=== PATIENT | female | born 1995 | race Caucasian/White ===

== ENCOUNTER 2019-11-09 03:22 | Emergency (ER) | payer BC ==
[2019-11-09 03:30] VITALS: RESP 18
[2019-11-09] MEDS ORDERED: ONDANSETRON 4 MG/2 ML VIAL IVP STA ×2 (03:43→04:49)
[2019-11-09] MEDS ORDERED: SODIUM CHLORIDE 0.9% 1,000 ML IV ONE (03:43)
--- NOTE | 2019-11-09 04:00 | ED ---
Syncope [facility] - General Chief Complaint: Syncope Stated Complaint: Syncope, vomiting Time Seen by Provider: 11/09/19 03:33 Source: family Mode of arrival: ambulatory Limitations: no limitations - History of Present Illness MD Complaint: loss of consciousness -: minutes(s) Prodromal Symptoms: lightheaded, nausea/vomiting -: second(s) Injuries Sustained Associated with Event: None Current Symptoms: lightheaded, nausea History: previous syncopal episode Treatments Prior to Arrival: none - Related Data Previous Rx's Medication Instructions Recorded Ondansetron Odt [Zofran ODT] 4 mg PO Q8HR PRN #10 tab 11/09/19 Allergies Allergy/AdvReac Type Severity Reaction Status Date / Time No Known Allergies Allergy Verified 11/09/19 03:30 Review of Systems ROS Statement: Those systems with pertinent positive or pertinent negative responses have been documented in the HPI. ROS Other: All systems not noted in ROS Statement are negative. Constitutional: Reports: fever Respiratory: Reports: cough. Denies: dyspnea, wheezes, hemoptysis Cardiovascular: Reports: syncope. Denies: chest pain, palpitations, orthopnea, edema Gastrointestinal: Reports: nausea, vomiting. Denies: abdominal pain, diarrhea, constipation, melena, hematochezia Genitourinary: Denies: dysuria, hematuria Musculoskeletal: Denies: back pain Skin: Denies: rash Neurological: Denies: headache, weakness, numbness Past Medical History Past Medical History: No Reported History History of Any Multi-Drug Resistant Organisms: None Reported Past Surgical History: No Surgical Hx Reported Past Psychological History: No Psychological Hx Reported Smoking Status: Never smoker Past Alcohol Use History: None Reported Past Drug Use History: None Reported General Exam Limitations: no limitations General appearance: alert, in no apparent distress Head exam: Present: atraumatic, normocephalic Eye exam: Present: normal appearance. Absent: scleral icterus, conjunctival injection ENT exam: Present: mucous membranes dry Neck exam: Present: normal inspection Respiratory exam: Present: normal lung sounds bilaterally. Absent: respiratory distress, wheezes, rales, rhonchi, stridor Cardiovascular Exam: Present: regular rate, normal rhythm, normal heart sounds. Absent: systolic murmur, diastolic murmur, rubs, gallop GI/Abdominal exam: Present: soft. Absent: distended, tenderness, guarding, rebound, rigid, mass, pulsatile mass Extremities exam: Present: normal inspection, normal capillary refill Back exam: Present: normal inspection. Absent: CVA tenderness (R), CVA tenderness (L) Neurological exam: Present: alert Skin exam: Present: warm, dry, intact, normal color. Absent: rash Course Vital Signs 11/09/19 03:28 Temperature 98.1 F Pulse Rate 112 H Respiratory 18 Rate Blood Pressure 112/77 O2 Sat by Pulse 97 Oximetry EKG Findings - EKG Results: EKG: interpreted by WILL VALENCIA, sinus rhythm (Rate 86 bpm), normal axis, normal QRS, normal ST/T, no acute changes - DC, Pacemaker, Normal: Normal tracing: normal tracing Medical Decision Making - Lab Data Result diagrams: 11/09/19 03:49 11/09/19 03:49 Lab Results 11/09/19 11/09/19 11/09/19 Range/Units 03:49 03:49 03:49 WBC 12.3 H (3.8-10.6) k/uL RBC 4.75 (3.80-5.40) m/uL Hgb 13.4 (11.4-16.0) gm/dL Hct 41.8 (34.0-46.0) % MCV 88.1 (80.0-100.0) fL MCH 28.2 (25.0-35.0) pg MCHC 32.1 (31.0-37.0) g/dL RDW 13.1 (11.5-15.5) % Plt Count 174 (150-450) k/uL Neutrophils % (Manual) 8 % Band Neutrophils % 8 % Lymphocytes % (Manual) 82 % Monocytes % (Manual) 2 % Neutrophils # (Manual) 1.90 (1.3-7.7) k/uL Lymphocytes # (Manual) 10.09 H (1.0-4.8) k/uL Monocytes # (Manual) 0.25 (0-1.0) k/uL Nucleated RBCs 0 (0-0) /100 WBC Manual Slide Review Performed Reactive Lymphocytes Present Large Platelets Present Anisocytosis (manual) Present Sodium 136 L (137-145) mmol/L Potassium 4.0 (3.5-5.1) mmol/L Chloride 105 (98-107) mmol/L Carbon Dioxide 23 (22-30) mmol/L Anion Gap 8 mmol/L BUN 8 (7-17) mg/dL Creatinine 0.90 (0.52-1.04) mg/dL Est GFR (CKD-EPI)AfAm >90 (>60 ml/min/1.73 sqM) Est GFR (CKD-EPI)NonAf 90 (>60 ml/min/1.73 sqM) Glucose 126 H (74-99) mg/dL Calcium 9.2 (8.4-10.2) mg/dL Total Bilirubin 0.6 (0.2-1.3) mg/dL AST 129 H (14-36) U/L ALT 136 H (4-34) U/L Alkaline Phosphatase 133 H (38-126) U/L Total Protein 6.7 (6.3-8.2) g/dL Albumin 3.9 (3.5-5.0) g/dL Heterophile Antibody Positive (Negative) Disposition Clinical Impression: Mononucleosis Disposition: HOME SELF-CARE Condition: Good Instructions (If sedation given, give patient instructions): Mononucleosis (ED) Prescriptions: Ondansetron Odt [Zofran ODT] 4 mg PO Q8HR PRN #10 tab PRN Reason: Nausea Is patient prescribed a controlled substance at d/c from ED?: No Referrals: Link Melendez DO [Primary Care Provider] - 1-2 days
[2019-11-09 04:17] LABS: HCT 41.8 % (34.0-46.0); HGB 13.4 gm/dL (11.4-16.0); MCH 28.2 pg (25.0-35.0); MCHC 32.1 g/dL (31.0-37.0); MCV 88.1 fL (80.0-100.0); Mean Platelet Volume 8.6; Platelet Count 174 k/uL (150-450); RBC 4.75 m/uL (3.80-5.40); RDW 13.1 % (11.5-15.5); WBC 12.3 k/uL (3.8-10.6)
[2019-11-09 04:28] LABS: ALT 136 U/L (4-34); AST 129 U/L (14-36); African American GFR (CKD) >90 (>60 ml/min/1.73 sqM); Albumin 3.9 g/dL (3.5-5.0); Alkaline Phosphatase 133 U/L (38-126); Anion Gap 8 mmol/L; Blood Urea Nitrogen 8 mg/dL (7-17); Calcium 9.2 mg/dL (8.4-10.2); Carbon Dioxide 23 mmol/L (22-30); Chloride 105 mmol/L (98-107); Glucose 126 mg/dL (74-99); Non-African American GFR(CKD) 90 (>60 ml/min/1.73 sqM); Sodium 136 mmol/L (137-145); Total Bilirubin 0.6 mg/dL (0.2-1.3); Total Protein 6.7 g/dL (6.3-8.2)
[2019-11-09 04:40] LABS: Band Neutrophils % 8 %; Lymphocytes # (M) 10.09 k/uL (1.0-4.8); Monocytes # (M) 0.25 k/uL (0-1.0); Neutrophils % (M) 8 %; Nucleated Red Blood Cells 0 /100 WBC (0-0); Reactive Lymphocytes Present; Total Cells Counted 100
[2019-11-09 04:43] LABS: Anisocytosis (M) Present; Large Platelets Present
--- NOTE | 2019-11-09 04:50 | XR ---
EXAMINATION TYPE: XR chest 2V DATE OF EXAM: 11/09/2019 COMPARISON: NONE HISTORY: Cough and fever TECHNIQUE: 2 views FINDINGS: Heart and mediastinum are normal. Lungs are clear. Diaphragm is normal. Bony thorax appears normal. IMPRESSION: Normal chest.
[2019-11-09 05:37] LABS: Appearance,Urine Clear (Clear); Bacteria,Urine Occasional /hpf; Bilirubin,Urine Negative (Negative); Blood,Urine Negative (Negative); Color,Urine Yellow; Glucose,Urine (UA) Negative (Negative); Hyaline Casts,Urine 1 /lpf (0-2); Ketones,Urine Negative (Negative); Leukocyte Esterase,Urine Small (Negative); Mucus,Urine Few /hpf; Nitrite,Urine Negative (Negative); PH, Urine 6.5 (5.0-8.0); Protein,Urine Trace (Negative); RBC,Urine 1 /hpf (0-5); Specific Gravity,Urine 1.019 (1.001-1.035); Squamous Epithelial Cell,Urine 2 /hpf (0-4); WBC,Urine 13 /hpf (0-5)
[2019-11-09 05:47] VITALS: BP 126/75; PULSE 92; TEMP 99.2
== END 2019-11-09 05:47 | disposition home or self-care (01) ==
LOC: EC 03:22
DX: B27.90 Infectious mononucleosis, unspecified without complication (principal)
CPT/HCPCS: 36415; 71046; 80053; 81001; 81025; 85025; 86308; 93005; 96361; 96374; 96376; 99284

== ENCOUNTER → 2019-12-10 | Outpatient (CLI) | payer BC ==
--- NOTE | 2019-12-17 13:01 | HM ---
HOLTER MONITOR REPORT HOLTER MONITOR: Patient was monitored for 24 hours. The baseline rhythm is a sinus mechanism with normal conduction and minimum was 56 beats per minute. Maximum 178 beats per minute, average is 93 beats per minute. Ventricular ectopic activity is present was present form of rare single PVCs. Supraventricular ectopic activity was present form of rare single PACs. Symptoms of flutter, flutter did correlate with sinus mechanism, nausea correlated with sinus mechanism, felt heartbeat correlated with a single PVC. CONCLUSION: 1. Sinus mechanism baseline rhythm. 2. Rare ventricular ectopic activity. 3. Rare supraventricular ectopic activity. 4. Symptoms of flutter, correlate 1 time with a single PVCs, although patient had single PVCs that were asymptomatic. MMODL / IJN: [id number] /
== END | disposition home or self-care (01) ==
LOC: RADECHMAIN 11:54
PROVIDERS: ATTEND Family Medicine
DX: I49.8 Other specified cardiac arrhythmias (principal)
CPT/HCPCS: 93225; 93226